=== PATIENT | male | born 1940 | race Caucasian/White ===

== ENCOUNTER → 2017-02-23 | Outpatient (CLI) | payer OTHER ==
[2017-02-23 08:31] LABS: BLOOD GAS BASE EXCESS 3.1 mmol/L (-2-2); BLOOD GAS CARBOXYHEMOGLOBIN 1.5 % (0-4); BLOOD GAS HCO3 27 mmol/L (22-26); BLOOD GAS METHEMOGLOBIN 1.2 % (0-2); BLOOD GAS O2 HGB SATURATION 94 % (90-100); BLOOD GAS OXYGEN CONTENT 19.5 Vol % (12.0-20.0); BLOOD GAS PCO2 39 mmHg (38-42); BLOOD GAS PO2 89 mmHg (61-120); BLOOD GAS TOTAL HGB 14.7 G/DL (12.0-16.0); TEMP CORR TO 98.6
[2017-02-23 08:32] LABS: CRITICAL VALUE NO; DRAW SITE RT RADIAL; FIO2 21 %; NUMBER OF ARTERIAL PUNCTURES 1; STAT NO; ULNAR PULSE PRESENT
--- NOTE | 2017-03-26 10:28 | RSPPFT ---
DATE OF PROCEDURE: 02/23/17 COMMENTS: Spirometry with FVC of 2.7, FEV1 of 2.0, FEV1/FVC ratio at 74%. A positive and significant response to acutely inhaled bronchodilator. Room air arterial blood gases show pH of 7.45, PCO2 of 39, PO2 of 89. Slow vital capacity is 69% of predicted. TLC is 102%. Diffusion capacity is normal. IMPRESSION: 1. Mild airways obstruction. 2. Positive and significant response to acutely inhaled bronchodilator. 3. Adequate oxygenation and alveolar ventilation. 4. No evidence of airways restriction. 5. Normal diffusion capacity.
== END ==
LOC: HRSP 07:53
PROVIDERS: ATTEND Internal Medicine Sleep Medicine
DX: R06.89 Other abnormalities of breathing (principal)
CPT/HCPCS: 36600; 82805; 94060; 94726; 94729

== ENCOUNTER 2017-11-15 01:37 | Observation (INO) | payer OTHER ==
[~2017-11-15] VITALS: Ht 180.3 cm; Wt 103.0 kg
[2017-11-15 01:42] VITALS: BP 169/82; PULSE 88; RESP 18; TEMP 97.8; O2SAT 99
[2017-11-15] MEDS ORDERED: HYDR25TA5 PO (02:08)
--- NOTE | 2017-11-15 02:32 | PD ---
HPI Chief Complaint: GI Complaint Time Seen by Provider: 01:53 Travel History International Travel<30 days: No Contact w/Intl Traveler<30days: No Traveled to known affect area: No History of Present Illness HPI This is a 76-year-old male who presents to the emergency department with bright red blood per rectum that started last evening. He says around 11 PM he had a bloody stool and subsequently he's had 4 since then. It's mostly just been bright red blood coming from his rectum and he had a small amount of loose stool with it. He's been filling the toilet with blood. He denies any lightheadedness or dizziness. Symptoms have been constant since this evening with no associated lightheadedness or dizziness. He is not on any blood thinners. This is never happened to him before. He had a normal colonoscopy 4 years ago with Edward Benjamin. [facility] Past Medical History High Cholesterol: Yes Diminished Hearing: No Hypertension: Yes Musculoskeletal: Yes (neck fracture) Tetanus Vaccination: Unknown Influenza Vaccination: Yes Past Surgical History Tonsillectomy: Yes Social History Alcohol Use: No Tobacco Use: No Substance Use: No Allergies-Medications (Allergen,Severity, Reaction): Coded Allergies: No Known Allergies (Verified Allergy, Unknown, 11/15/17) Reported Meds & Prescriptions Reported Meds & Active Scripts Active Reported Hydrochlorothiazide 25 Mg Tab 25 Mg PO DAILY Review of Systems Except as stated in HPI: all other systems reviewed are Neg Physical Exam Narrative GENERAL:Well appearing, no acute distress SKIN: Focused skin assessment warm and dry. HEAD: Atraumatic. Normocephalic. EYES: Pupils equal and round. No injection or drainage. ENT: Moist mucous membranes NECK: Trachea midline. CARDIOVASCULAR: Regular rate and rhythm. No murmur appreciated. RESPIRATORY: Clear to auscultation. Breath sounds equal bilaterally. GASTROINTESTINAL: Abdomen soft, non-tender, nondistended. Normal external rectal exam with no hemorrhoids or fissures. Bright red blood adherent around the rectum. MUSCULOSKELETAL: No obvious deformities. NEUROLOGICAL: Awake and alert. No obvious cranial nerve deficits. Moving all extremities. PSYCHIATRIC: Appropriate mood and affect; insight and judgment normal. Data Data Last Documented VS Vital Signs Date Time Temp Pulse Resp B/P (MAP) Pulse Ox O2 Delivery O2 Flow Rate FiO2 11/15/17 02:41 74 18 140/71 (94) 99 Room Air 11/15/17 01:42 97.8 Orders Orders Complete Blood Count With Diff (11/15/17 02:17) Comprehensive Metabolic Panel (11/15/17 02:17) ^ Insert Iv (11/15/17 02:17) Prothrombin Time / Inr (Pt) (11/15/17 02:17) Act Partial Throm Time (Ptt) (11/15/17 02:17) Type And Screen (11/15/17 02:18) Admit Order (Ed Use Only) (11/15/17 03:26) Labs Laboratory Tests Test 11/15/17 02:30 White Blood Count 7.3 TH/MM3 Red Blood Count 4.53 MIL/MM3 Hemoglobin 12.4 GM/DL Hematocrit 38.1 % Mean Corpuscular Volume 84.1 FL Mean Corpuscular Hemoglobin 27.4 PG Mean Corpuscular Hemoglobin Concent 32.6 % Red Cell Distribution Width 12.8 % Platelet Count 225 TH/MM3 Mean Platelet Volume 7.2 FL Neutrophils (%) (Auto) 68.7 % Lymphocytes (%) (Auto) 21.7 % Monocytes (%) (Auto) 7.4 % Eosinophils (%) (Auto) 1.8 % Basophils (%) (Auto) 0.4 % Neutrophils # (Auto) 5.1 TH/MM3 Lymphocytes # (Auto) 1.6 TH/MM3 Monocytes # (Auto) 0.5 TH/MM3 Eosinophils # (Auto) 0.1 TH/MM3 Basophils # (Auto) 0.0 TH/MM3 CBC Comment DIFF FINAL Differential Comment Prothrombin Time 10.4 SEC Prothromb Time International Ratio 1.0 RATIO Activated Partial Thromboplast Time 26.3 SEC Blood Urea Nitrogen 15 MG/DL Creatinine 1.20 MG/DL Random Glucose 113 MG/DL Total Protein 6.7 GM/DL Albumin 3.2 GM/DL Calcium Level 8.4 MG/DL Alkaline Phosphatase 72 U/L Aspartate Amino Transf (AST/SGOT) 16 U/L Alanine Aminotransferase (ALT/SGPT) 19 U/L Total Bilirubin 0.4 MG/DL Sodium Level 139 MEQ/L Potassium Level 3.7 MEQ/L Chloride Level 105 MEQ/L Carbon Dioxide Level 26.4 MEQ/L Anion Gap 8 MEQ/L Estimat Glomerular Filtration Rate 59 ML/MIN MDM Medical Decision Making Medical Screen Exam Complete: Yes Emergency Medical Condition: Yes Interpretation(s) Afebrile, no tachycardia, hypertensive no leukocytosis electrolytes within normal limits Differential Diagnosis Diverticulosis, AVM, colitis, hemorrhoid, anal fissure Narrative Course This is a 76-year-old male who presents to the emergency department with bright red blood per rectum that started last evening and persisted for multiple episodes. Labs are obtained which were reassuring. Patient has evidence of dried red blood around the rectum with no obvious external hemorrhoids or anal fissures. I recommended observation for the patient for serial hemoglobins and GI consultation. Family got quite upset when they found out they were going to be under observation status and not admission status. I spoke to the hospice case manager and unfortunately the patient does not meet admission criteria. I explained to the family that my continued recommendation would be for them to be in observation, see GI and potentially have a colonoscopy performed tomorrow. They're unwilling to stay in the hospital. They plan to call their primary care physician in the morning and obtain a GI referral. The patient and his have decision-making capacity. They expressed understanding of the risks of further life-threatening bleeding and they decided to leave AGAINST MEDICAL ADVICE. Diagnosis Primary Impression: Bright red blood per rectum Patient Instructions: General Instructions Additional Instructions: If you develop lightheadedness, dizziness, or further bleeding please return to the emergency department. Disposition: 07 AGAINST MEDICAL ADVICE Judy Diaz MD Nov 15, 2017 02:32
[2017-11-15 02:41] VITALS: BP 140/71; PULSE 74; RESP 18; O2SAT 99
[2017-11-15 02:41] LABS: AUTOMATED NEUTROPHIL # 5.1 TH/MM3 (1.8-7.7); BASOPHIL % 0.4 % (0.0-2.0); EOSINOPHIL # 0.1 TH/MM3 (0-0.4); EOSINOPHIL % 1.8 % (0.0-4.0); HEMATOCRIT 38.1 % (39.0-51.0); HEMOGLOBIN 12.4 GM/DL (13.0-17.0); LYMPH % 21.7 % (9.0-44.0); LYMPHOCYTE # 1.6 TH/MM3 (1.0-4.8); MEAN CELL VOLUME 84.1 FL (80.0-100.0); MEAN CORPUSCULAR HEMOGLOBIN 27.4 PG (27.0-34.0); MEAN CORPUSCULAR HGB CONC 32.6 % (32.0-36.0); MEAN PLATELET VOLUME 7.2 FL (7.0-11.0); MONO % 7.4 % (0.0-8.0); MONOCYTE # 0.5 TH/MM3 (0-0.9); NEUT % 68.7 % (16.0-70.0); PLATELET COUNT 225 TH/MM3 (150-450); RED BLOOD COUNT 4.53 MIL/MM3 (4.50-5.90); RED CELL DISTRIBUTION WIDTH 12.8 % (11.6-17.2); WHITE BLOOD COUNT 7.3 TH/MM3 (4.0-11.0)
[2017-11-15 02:48] LABS: CHLORIDE 105 MEQ/L (98-107); SODIUM (NA) 139 MEQ/L (136-145)
[2017-11-15 02:51] LABS: CALCIUM 8.4 MG/DL (8.5-10.1)
[2017-11-15 02:52] LABS: ALBUMIN 3.2 GM/DL (3.4-5.0); BICARBONATE 26.4 MEQ/L (21.0-32.0); BLOOD UREA NITROGEN 15 MG/DL (7-18); GLUCOSE,RANDOM 113 MG/DL (74-106); PROTHROMBIN TIME - PATIENT 10.4 SEC (9.8-11.6)
[2017-11-15 02:55] LABS: ALT (GPT) 19 U/L (12-78); AST (GOT) 16 U/L (15-37); GLOMERULAR FILTRATION RATE 59 ML/MIN (>89)
[2017-11-15 02:56] LABS: TOTAL BILIRUBIN ADULT 0.4 MG/DL (0.2-1.0); TOTAL PROTEIN 6.7 GM/DL (6.4-8.2)
[2017-11-15 02:58] LABS: ALKALINE PHOSPHATASE 72 U/L (45-117)
[2017-11-15] MEDS ORDERED: SODIUM CHLORIDE 0.9% FLUSH 10 ML FLUSH IV FLUSH PRN (03:30)
[2017-11-15] MEDS ORDERED: ONDANSETRON HCL 4 MG/2 ML VIAL IV PUSH PRN (03:30)
[2017-11-15 04:30] VITALS: BP 138/70; PULSE 77; RESP 18; O2SAT 99
[2017-11-15] MEDS ORDERED: SODIUM CHLORIDE 0.9% FLUSH 10 ML FLUSH IV FLUSH SCH (09:00)
[2017-11-15] MEDS ORDERED: LISI40TA PO (09:42)
[2017-11-15] MEDS ORDERED: LOVA40TA PO (09:42)
== END 2017-11-15 05:26 | disposition left against medical advice (07) ==
LOC: PHED 01:37 → PHEDA 03:27
PROVIDERS: ADMIT Hospitalist; ATTEND Hospitalist
DX: K92.1 Melena (principal); I10 Essential (primary) hypertension; E78.00 Pure hypercholesterolemia, unspecified
CPT/HCPCS: 80053; 85025; 85610; 85730; 86850; 86900; 86901; 87493; 99285; G0378; 96360; 96361; 99283; J7030

== ENCOUNTER 2017-11-15 08:20 | Emergency (ER) | payer OTHER ==
[~2017-11-15] VITALS: Ht 180.3 cm; Wt 102.9 kg
[~2017-11-15 08:20] MED LIST: HYDR25TA5 PO
[2017-11-15 08:24] VITALS: BP 133/57; PULSE 79; RESP 16; TEMP 97.5; O2SAT 96
[2017-11-15] MEDS ORDERED: SODIUM CHLOR 0.9% 1000 ML INJ 1,000 ML IV SCH (08:56)
[2017-11-15] MEDS ORDERED: SODIUM CHLORIDE 0.9% FLUSH 10 ML FLUSH IVF PRN (09:00)
--- NOTE | 2017-11-15 09:05 | PD ---
HPI Chief Complaint: GI Complaint Time Seen by Provider: 08:45 Travel History International Travel<30 days: No Contact w/Intl Traveler<30days: No Traveled to known affect area: No History of Present Illness HPI The patient is a 76-year-old male who presents to the emergency department for reevaluation of rectal bleeding. The patient was seen in the emergency department last night by Dr. Diaz for bright rectal bleeding. The patient was noted to have a normal hemoglobin, however, had 4 bouts of bright red blood per rectum at home and then one episode of darker colored blood with clots in the emergency department. It is recommended that the patient be 23 hour observation, however, he left AGAINST MEDICAL ADVICE and returned home. The patient states he has had 2 more episodes of bright rectal bleeding at home without any visible clots. He denies any lightheadedness, dizziness, chest pain , or shortness of breath. He denies taking any blood thinners. The patient had a normal colonoscopy [address] Rodriguez at [facility] per his report. He denies any history of known diverticulosis, upper GI bleed, or internal hemorrhoids. He denies any abdominal pain or cramping. Symptoms are mild to moderate without any alleviating or exacerbating factors. PFSH Past Medical History High Cholesterol: Yes Diminished Hearing: No Hypertension: Yes Musculoskeletal: Yes (neck fracture) Past Surgical History Tonsillectomy: Yes Social History Alcohol Use: No Tobacco Use: No Substance Use: No Allergies-Medications (Allergen,Severity, Reaction): Coded Allergies: No Known Allergies (Verified Allergy, Unknown, 11/15/17) Reported Meds & Prescriptions Reported Meds & Active Scripts Active Reported Lovastatin 40 Mg Tab 40 Mg PO HS Lisinopril 40 Mg Tab 40 Mg PO DAILY Hydrochlorothiazide 25 Mg Tab 25 Mg PO DAILY Review of Systems Except as stated in HPI: all other systems reviewed are Neg General / Constitutional: No: Fever HENT: No: Lightheadedness Cardiovascular: No: Chest Pain or Discomfort, Syncope, Dyspnea on exertion Respiratory: No: Shortness of Breath Gastrointestinal: Positive: Hematochezia, Changes in Bowel Habits, No: Nausea, Vomiting, Abdominal Pain, Hematemesis Musculoskeletal: No: Weakness Neurologic: No: Dizziness, Syncope Physical Exam Narrative GENERAL: Awake, alert, pleasant 76-year-old male who appears his stated age and is in no acute respiratory distress. SKIN: Focused skin assessment warm/dry. HEAD: Atraumatic. Normocephalic. EYES: Pupils equal and round. No scleral icterus. No injection or drainage. No significant lower pallor noted. ENT: No nasal bleeding or discharge. Mucous membranes pink and moist. NECK: Trachea midline. No JVD. CARDIOVASCULAR: Regular rate and rhythm. No murmur appreciated. Heart rate in the 70s. RESPIRATORY: No accessory muscle use. Clear to auscultation. Breath sounds equal bilaterally. GASTROINTESTINAL: Abdomen soft, non-tender, nondistended. No rebound tenderness. Rectal: The exam was performed in the presence of a female nurse. No visible fissure or external hemorrhoids. Rectal examination reveals bright red blood on digital exam that is guaiac positive. MUSCULOSKELETAL: No obvious deformities. No clubbing. No cyanosis. No edema. NEUROLOGICAL: Awake and alert. No obvious cranial nerve deficits. Motor grossly within normal limits. Normal speech. PSYCHIATRIC: Appropriate mood and affect; insight and judgment normal. Data Data Last Documented VS Vital Signs Date Time Temp Pulse Resp B/P (MAP) Pulse Ox O2 Delivery O2 Flow Rate FiO2 11/15/17 10:15 80 16 111/68 (82) 95 Room Air 11/15/17 08:24 97.5 Orders Orders Complete Blood Count With Diff (11/15/17 08:56) Comprehensive Metabolic Panel (11/15/17 08:56) Prothrombin Time / Inr (Pt) (11/15/17 08:56) Act Partial Throm Time (Ptt) (11/15/17 08:56) Ecg Monitoring (11/15/17 08:56) Iv Access Insert/Monitor (11/15/17 08:56) Orthostatic Vital Signs (11/15/17 08:56) Oximetry (11/15/17 08:56) Sodium Chlor 0.9% 1000 Ml Inj (Ns 1000 M (11/15/17 08:56) Sodium Chloride 0.9% Flush (Ns Flush) (11/15/17 09:00) Labs Laboratory Tests Test 11/15/17 09:08 White Blood Count 7.2 TH/MM3 Red Blood Count 4.10 MIL/MM3 Hemoglobin 11.5 GM/DL Hematocrit 35.3 % Mean Corpuscular Volume 86.0 FL Mean Corpuscular Hemoglobin 28.1 PG Mean Corpuscular Hemoglobin Concent 32.7 % Red Cell Distribution Width 13.3 % Platelet Count 222 TH/MM3 Mean Platelet Volume 7.3 FL Neutrophils (%) (Auto) 77.2 % Lymphocytes (%) (Auto) 15.7 % Monocytes (%) (Auto) 5.3 % Eosinophils (%) (Auto) 1.0 % Basophils (%) (Auto) 0.8 % Neutrophils # (Auto) 5.5 TH/MM3 Lymphocytes # (Auto) 1.1 TH/MM3 Monocytes # (Auto) 0.4 TH/MM3 Eosinophils # (Auto) 0.1 TH/MM3 Basophils # (Auto) 0.1 TH/MM3 CBC Comment DIFF FINAL Differential Comment Prothrombin Time 10.5 SEC Prothromb Time International Ratio 1.0 RATIO Activated Partial Thromboplast Time 26.4 SEC Blood Urea Nitrogen 16 MG/DL Creatinine 1.10 MG/DL Random Glucose 104 MG/DL Total Protein 6.6 GM/DL Albumin 3.1 GM/DL Calcium Level 8.7 MG/DL Alkaline Phosphatase 63 U/L Aspartate Amino Transf (AST/SGOT) 15 U/L Alanine Aminotransferase (ALT/SGPT) 19 U/L Total Bilirubin 0.5 MG/DL Sodium Level 141 MEQ/L Potassium Level 4.1 MEQ/L Chloride Level 102 MEQ/L Carbon Dioxide Level 28.2 MEQ/L Anion Gap 11 MEQ/L Estimat Glomerular Filtration Rate 65 ML/MIN [facility] Medical Decision Making Medical Screen Exam Complete: Yes Emergency Medical Condition: Yes Medical Record Reviewed: Yes Interpretation(s) Laboratory Tests Test 11/15/17 09:08 White Blood Count 7.2 TH/MM3 Red Blood Count 4.10 MIL/MM3 Hemoglobin 11.5 GM/DL Hematocrit 35.3 % Mean Corpuscular Volume 86.0 FL Mean Corpuscular Hemoglobin 28.1 PG Mean Corpuscular Hemoglobin Concent 32.7 % Red Cell Distribution Width 13.3 % Platelet Count 222 TH/MM3 Mean Platelet Volume 7.3 FL Neutrophils (%) (Auto) 77.2 % Lymphocytes (%) (Auto) 15.7 % Monocytes (%) (Auto) 5.3 % Eosinophils (%) (Auto) 1.0 % Basophils (%) (Auto) 0.8 % Neutrophils # (Auto) 5.5 TH/MM3 Lymphocytes # (Auto) 1.1 TH/MM3 Monocytes # (Auto) 0.4 TH/MM3 Eosinophils # (Auto) 0.1 TH/MM3 Basophils # (Auto) 0.1 TH/MM3 CBC Comment DIFF FINAL Differential Comment Prothrombin Time 10.5 SEC Prothromb Time International Ratio 1.0 RATIO Activated Partial Thromboplast Time 26.4 SEC Blood Urea Nitrogen 16 MG/DL Creatinine 1.10 MG/DL Random Glucose 104 MG/DL Total Protein 6.6 GM/DL Albumin 3.1 GM/DL Calcium Level 8.7 MG/DL Alkaline Phosphatase 63 U/L Aspartate Amino Transf (AST/SGOT) 15 U/L Alanine Aminotransferase (ALT/SGPT) 19 U/L Total Bilirubin 0.5 MG/DL Sodium Level 141 MEQ/L Potassium Level 4.1 MEQ/L Chloride Level 102 MEQ/L Carbon Dioxide Level 28.2 MEQ/L Anion Gap 11 MEQ/L Estimat Glomerular Filtration Rate 65 ML/MIN Differential Diagnosis Differential diagnosis includes internal hemorrhoids, diverticulosis, upper GI bleed, AV malformation, angiodysplasia, anal fissure, peptic ulcer disease. Narrative Course IV was established, labs are drawn and sent, and the patient was placed on cardiac telemetry monitoring and continuous pulse oximetry monitoring. I reviewed the EMR and the patient's hemoglobin last night was 12.4 with hematocrit of 38.1. Therefore, repeat CBC was obtained. Orthostatic vital signs reveal that the patient's heart rate went from 73 at rest and 94 standing and his blood pressure went from 118/63 sitting to 96/61 standing. The patient' s repeat hemoglobin was 11.1, down from 12.4. However, the patient was not symptomatic with orthostatic vital signs. The patient feels well, therefore, a call was placed to the patient's foreign language professor, Dr. Rodriguez. I discussed the patient with Dr. Rodriguez at 9:50 AM. We had a discussion regarding 23 hour observation versus outpatient follow-up. After discussion with the foreign language professor it was agreed the patient will be discharged and would call the foreign language professor office later today to make an appointment for outpatient follow-up and probable endoscopy. The patient is comfortable with this plan of care and disposition. However, he is advised to return if he has any exertional shortness of breath, orthostatic changes, lightheadedness, dizziness , or chest pain. The patient agrees and understands. [facility] Point of Care Internal Pos. & Neg. Controls: Passed Fecal Specimen Occult Blood: Positive Diagnosis Primary Impression: Hematochezia Additional Impression: GI bleed Qualified Codes: K92.2 - Gastrointestinal hemorrhage, unspecified Patient Instructions: General Instructions Additional Instructions: Please provide the patient a copy of his labs at discharge. Call Dr. Rodriguez's office today to make an appointment. Return for any exertional shortness of breath, chest pain, lightheadedness, near-syncope, or progressing symptoms. Med/Other Pt SpecificInfo: No Change to Meds Disposition: 01 DISCHARGE HOME Condition: Stable Jose Angel Jaimes MD Nov 15, 2017 09:05
[2017-11-15 09:19] VITALS: BP_SYST 113; BP_SYST 118; BP_SYST 96; BP_DIAS 61; BP_DIAS 63; BP_DIAS 67; RESP 16; RESP 17
[2017-11-15 09:28] LABS: AUTOMATED NEUTROPHIL # 5.5 TH/MM3 (1.8-7.7); BASOPHIL # 0.1 TH/MM3 (0-0.2); BASOPHIL % 0.8 % (0.0-2.0); EOSINOPHIL # 0.1 TH/MM3 (0-0.4); HEMATOCRIT 35.3 % (39.0-51.0); HEMOGLOBIN 11.5 GM/DL (13.0-17.0); LYMPH % 15.7 % (9.0-44.0); LYMPHOCYTE # 1.1 TH/MM3 (1.0-4.8); MEAN CORPUSCULAR HEMOGLOBIN 28.1 PG (27.0-34.0); MEAN CORPUSCULAR HGB CONC 32.7 % (32.0-36.0); MEAN PLATELET VOLUME 7.3 FL (7.0-11.0); MONO % 5.3 % (0.0-8.0); MONOCYTE # 0.4 TH/MM3 (0-0.9); NEUT % 77.2 % (16.0-70.0); PLATELET COUNT 222 TH/MM3 (150-450); RED CELL DISTRIBUTION WIDTH 13.3 % (11.6-17.2); WHITE BLOOD COUNT 7.2 TH/MM3 (4.0-11.0)
[2017-11-15] MEDS ORDERED: LISI40TA PO (09:42)
[2017-11-15] MEDS ORDERED: LOVA40TA PO (09:42)
[2017-11-15 09:59] LABS: PROTHROMBIN TIME - PATIENT 10.5 SEC (9.8-11.6)
[2017-11-15 10:07] LABS: BLOOD UREA NITROGEN 16 MG/DL (7-18)
[2017-11-15 10:08] LABS: CHLORIDE 102 MEQ/L (98-107); GLUCOSE,RANDOM 104 MG/DL (74-106); SODIUM (NA) 141 MEQ/L (136-145)
[2017-11-15 10:15] VITALS: BP 111/68; PULSE 80; RESP 16; O2SAT 95
[2017-11-15 10:15] LABS: CALCIUM 8.7 MG/DL (8.5-10.1)
[2017-11-15 10:16] LABS: ALBUMIN 3.1 GM/DL (3.4-5.0); BICARBONATE 28.2 MEQ/L (21.0-32.0)
[2017-11-15 10:19] LABS: ALT (GPT) 19 U/L (12-78); AST (GOT) 15 U/L (15-37); GLOMERULAR FILTRATION RATE 65 ML/MIN (>89)
[2017-11-15 10:21] LABS: TOTAL BILIRUBIN ADULT 0.5 MG/DL (0.2-1.0); TOTAL PROTEIN 6.6 GM/DL (6.4-8.2)
[2017-11-15 10:22] LABS: ALKALINE PHOSPHATASE 63 U/L (45-117)
[2017-11-15 11:08] VITALS: BP 120/74
== END 2017-11-15 11:08 | disposition home or self-care (01) ==
LOC: PHED 08:20
DX: K92.1 Melena (principal); Z53.21 Procedure and treatment not carried out due to patient leaving prior to being seen by health care provider; K92.2 Gastrointestinal hemorrhage, unspecified; E78.00 Pure hypercholesterolemia, unspecified; I10 Essential (primary) hypertension
CPT/HCPCS: 80053; 85025; 85610; 85730; 96360; 96361; 99284; J7030